=== PATIENT | female | born 1990 | race Asian ===

== ENCOUNTER 2016-09-18 22:32 | Emergency (ER) | payer OTHER ==
[~2016-09-18] VITALS: Ht 170.2 cm; Wt 59.9 kg
[2016-09-19 00:02] VITALS: BP 128/82; TEMP 98
== END 2016-09-19 00:02 | disposition home or self-care (01) ==
LOC: ED 22:32
DX: S46.911A Strain of unspecified muscle, fascia and tendon at shoulder and upper arm level, right arm, initial encounter (principal); S29.011A Strain of muscle and tendon of front wall of thorax, initial encounter
CPT/HCPCS: 96372; 99282; J1885; J2930

== ENCOUNTER 2022-03-06 23:14 | Emergency (ER) | payer OTHER ==
[~2022-03-06] VITALS: Ht 175.3 cm; Wt 66.7 kg
[2022-03-07 00:05] VITALS: BP 118/72; TEMP 99.5
== END 2022-03-07 00:05 | disposition home or self-care (01) ==
LOC: ED 23:14
DX: K02.9 Dental caries, unspecified (principal)
CPT/HCPCS: 96372; 99283; J1885

== ENCOUNTER 2022-06-21 18:16 | Emergency (ER) | payer OTHER ==
[~2022-06-21] VITALS: Ht 175.3 cm; Wt 68.5 kg
[2022-06-21 18:30] VITALS: BP 123/85; TEMP 98.7
== END 2022-06-21 19:20 | disposition home or self-care (01) ==
LOC: ED 18:16
DX: K02.9 Dental caries, unspecified (principal)
CPT/HCPCS: 96372; 99283; J1885